=== PATIENT | female | born 1940 | race Caucasian/White ===

== ENCOUNTER 2017-05-30 12:20 | Inpatient (IN) | payer MEDICARE ==
[2017-05-30 12:36] VITALS: BMI 28.8
[2017-05-30] MEDS ORDERED: Dextrose 50% Abboject 50 ML SYRINGE SLOW IVP PRN (13:56)
[2017-05-30] MEDS ORDERED: Dextrose 5% in Water 1,000 ML IV PRN (13:56)
[2017-05-30] MEDS: traMADol HCl 50 MG TAB PO PRN (14:59)
[2017-05-30] MEDS ORDERED: HumaLOG 300 UNITS/3 ML VIAL SC SCH (15:00)
[2017-05-30] MEDS: HumaLOG 300 UNITS/3 ML VIAL SC SCH (16:51)
[2017-05-30] MEDS: tiZANidine HCl 4 MG TAB PO PRN (17:11)
[2017-05-30] MEDS: Ondansetron ODT 4 MG TAB PO PRN (20:24)
[2017-05-30] MEDS: hydrALAZINE 25 MG TAB PO SCH (20:34)
[2017-05-30] MEDS: Gabapentin 300 MG CAP PO SCH (20:34)
[2017-05-30] MEDS: Levemir Flexpen 100 UNITS/ML PEN SC SCH (20:35)
--- NOTE | 2017-05-31 01:13 | HP ---
DATE OF ADMISSION: 05/30/2017 ADMITTING PHYSICIAN: Yeny Mora M.D. PRIMARY CARE PHYSICIAN: Westley Phan M.D. REASON FOR ADMISSION: Skilled rehabilitation at [facility] status post lumbar laminectomy. HISTORY OF PRESENT ILLNESS: Ms. Elliott Snell is a 76-year-old female with a past medical history of hypothyroidism, diabetes type 2, hypertension, neuropathic pain and chronic back pain. The patient has had chronic back pain for the past 7 years, which has progressively worsened and started to effect ADLs with episodes of multiple falls. The patient has had several MIKHAIL injections over the last 2 years with minimal pain relief. The decision was made to go for an elective laminectomy which patient did have on by Dr. Uriostegui. The patient was admitted to [facility] in [place] on the and discharged 05/30/2017 to continue skilled rehabilitation prior to discharge to home. The patient states she lives in a home by herself. She is a and she would like to go back home and be able to take care of herself. During hospitalization in [place], the patient did well and she had started physical therapy prior to discharge to skilled rehabilitation. The patient denies any nausea, vomiting. Denies any abdominal pain, denies any fevers, shortness of breath, or palpitations. She complains of back pain which is expected and some bilateral leg pain. A venogram of extremities was done in [facility] this morning and did not show any DVTs. The patient's pain is controlled with a muscle relaxant and tramadol. She is passing gas. She is tolerating a diet and has no other concerns. NEUROSPINE PHYSICIAN: Dr. Uriostegui. PAST MEDICAL HISTORY: Diabetes type 2, hypertension, hypothyroidism. PAST SURGICAL HISTORY: Cholecystectomy at age 36, hysterectomy at age 26. FAMILY HISTORY: Siblings alive, parents diseased with diabetes. SOCIAL HISTORY: Denies alcohol or illicit drug use. Denies tobacco use. The patient is a and has three grandchildren. MEDICATIONS: Carvedilol 12.5 daily, estradiol 1 mg daily, Lasix 20 daily, Neurontin 300 mg b.i.d., hydralazine 25 mg daily, Levemir 25 mg at bedtime, Humalog 7 mg t.i.d., levothyroxine 50 mcg daily, Paxil 25 mg daily, tizanidine 4 mg q.6 hours p.r.n., tramadol 100 mg t.i.d. p.r.n. pain. REVIEW OF SYSTEMS: General: The patient complains of weakness. The patient denies malaise. Denies any fever. Eyes: Denies eye pain, blurry vision, discharge. HEENT: Denies sinus pain, sore throat, ear pain discharge. Cardiovascular: Denies shortness of breath, chest pain. Respiratory: Denies cough, sputum production. Gastrointestinal: Denies nausea, vomiting, abdominal pain, melena, hematochezia. Musculoskeletal: Complains of back pain and bilateral leg pain. Neurologic: Denies confusion and altered mental status , headache. Psychiatric: Denies depression or hallucinations. PHYSICAL EXAMINATION: VITAL SIGNS: Temperature 98.1, pulse 73, respirations 20, O2 sat 96% on room air, blood pressure 126/67. GENERAL: Alert, awake, oriented x3, , very pleasant female, lying comfortably in bed. HEENT: Normocephalic, atraumatic. Moist oral mucous membranes. Trachea midline. Eyes: Pupils round, equal, reactive to light. Extraocular muscles intact. NECK: Supple, trachea midline. RESPIRATORY: Clear to auscultation bilaterally. CARDIOVASCULAR: S1, S2 present, no murmurs, rhythm and rate regular. ABDOMEN: Positive bowel sounds, soft, nontender, nondistended. EXTREMITIES: No calf edema or erythema. No tenderness. NEUROLOGICAL: Alert, awake, oriented x3. No focal deficits. PSYCHIATRIC: Normal exam. SKIN: Bruising to upper extremities from IV site. BACK: Midline incision was clean. No surrounding erythema, mildly tender with Steri-Strips in place. ASSESSMENT: 1. Gait instability. 2. Status post lumbar laminectomy. 3. Chronic back pain. 4. Diabetes type 2. 5. Hypothyroidism. 6. Hypertension. PLAN: This is a 76-year-old female with history of hypertension, hypothyroidism, and chronic back pain who is status post lumbar laminectomy and requires shelter for inpatient physical therapy and occupational therapy prior to discharge to home. We will admit patient to [facility] for skilled rehabilitation. We will consult physical therapy for strengthening and gait balance and gait training. We will consult occupational therapy to address activities of daily living and assist with devices and we will consult. We will restart the patient's home medications. We will control pain management with tramadol as needed and tizanidine for muscle relaxant. We will monitor the patient for any hemodynamic instabilities. We will place patient on Protonix for DVT prophylaxis and SCDs for DVT prophylaxis. Anticipated length of stay 1 to 2 weeks. MTDD
[2017-05-31] MEDS: traMADol HCl 50 MG TAB PO PRN ×2 (02:12→19:15)
[2017-05-31] MEDS: Levothyroxine Sodium 50 MCG TAB PO SCH (06:10)
[2017-05-31] MEDS: Furosemide 20 MG TAB PO SCH (08:34)
[2017-05-31] MEDS: HumaLOG 300 UNITS/3 ML VIAL SC SCH ×3 (08:35→16:59)
[2017-05-31] MEDS: Carvedilol 6.25 MG TAB PO SCH (08:36)
[2017-05-31] MEDS: Estradiol 1 MG TAB PO SCH (08:37)
[2017-05-31] MEDS: hydrALAZINE 25 MG TAB PO SCH ×2 (08:37→20:34)
[2017-05-31] MEDS: PARoxetine CR 12.5 MG TAB PO SCH (08:37)
[2017-05-31] MEDS: Gabapentin 300 MG CAP PO SCH ×2 (08:37→20:34)
[2017-05-31] MEDS: Multivit, Therapeutic 1 TAB PO SCH (08:37)
[2017-05-31] MEDS ORDERED: PAROXETINE HCL 20 MG PO SCH (09:00)
[2017-05-31] MEDS: Ondansetron ODT 4 MG TAB PO PRN ×2 (09:37→22:42)
[2017-05-31] MEDS: tiZANidine HCl 4 MG TAB PO PRN ×2 (09:37→20:37)
[2017-05-31] MEDS: Levemir Flexpen 100 UNITS/ML PEN SC SCH (20:33)
[2017-06-01] MEDS: traMADol HCl 50 MG TAB PO PRN ×3 (03:42→20:59)
[2017-06-01] MEDS: tiZANidine HCl 4 MG TAB PO PRN ×2 (04:43→21:00)
[2017-06-01] MEDS: Levothyroxine Sodium 50 MCG TAB PO SCH (06:03)
[2017-06-01] MEDS: Furosemide 20 MG TAB PO SCH (08:07)
[2017-06-01] MEDS: Carvedilol 6.25 MG TAB PO SCH (08:08)
[2017-06-01] MEDS: Gabapentin 300 MG CAP PO SCH ×2 (08:08→21:00)
[2017-06-01] MEDS: Estradiol 1 MG TAB PO SCH (08:08)
[2017-06-01] MEDS: PARoxetine CR 12.5 MG TAB PO SCH (08:09)
[2017-06-01] MEDS: hydrALAZINE 25 MG TAB PO SCH ×2 (08:09→21:00)
[2017-06-01] MEDS: Multivit, Therapeutic 1 TAB PO SCH (08:09)
[2017-06-01] MEDS: HumaLOG 300 UNITS/3 ML VIAL SC SCH ×3 (08:13→17:09)
[2017-06-01] MEDS: Levemir Flexpen 100 UNITS/ML PEN SC SCH (21:01)
[2017-06-02] MEDS: traMADol HCl 50 MG TAB PO PRN ×3 (04:11→22:01)
[2017-06-02] MEDS: tiZANidine HCl 4 MG TAB PO PRN ×2 (04:12→22:06)
[2017-06-02] MEDS: Ondansetron ODT 4 MG TAB PO PRN (05:02)
[2017-06-02] MEDS: Levothyroxine Sodium 50 MCG TAB PO SCH (05:02)
[2017-06-02] MEDS: Furosemide 20 MG TAB PO SCH (08:15)
[2017-06-02] MEDS: Carvedilol 6.25 MG TAB PO SCH (08:15)
[2017-06-02] MEDS: Multivit, Therapeutic 1 TAB PO SCH (08:16)
[2017-06-02] MEDS: Gabapentin 300 MG CAP PO SCH ×2 (08:16→20:30)
[2017-06-02] MEDS: HumaLOG 300 UNITS/3 ML VIAL SC SCH ×3 (08:16→17:04)
[2017-06-02] MEDS: Estradiol 1 MG TAB PO SCH (08:16)
[2017-06-02] MEDS: hydrALAZINE 25 MG TAB PO SCH ×2 (08:16→20:30)
[2017-06-02] MEDS: PARoxetine CR 12.5 MG TAB PO SCH (08:16)
[2017-06-02] MEDS: Naproxen 500 MG TAB PO PRN (20:31)
[2017-06-02] MEDS: Levemir Flexpen 100 UNITS/ML PEN SC SCH (20:32)
[2017-06-02] MEDS ORDERED: diphenhydrAMINE 25 MG CAP PO SCH (23:15)
[2017-06-03] MEDS: tiZANidine HCl 4 MG TAB PO PRN ×3 (03:11→22:05)
[2017-06-03] MEDS: Naproxen 500 MG TAB PO PRN (03:11)
[2017-06-03] MEDS: Levothyroxine Sodium 50 MCG TAB PO SCH (05:51)
[2017-06-03] MEDS: traMADol HCl 50 MG TAB PO PRN ×2 (05:52→20:26)
[2017-06-03] MEDS: hydrALAZINE 25 MG TAB PO SCH ×2 (08:32→20:25)
[2017-06-03] MEDS: Carvedilol 6.25 MG TAB PO SCH (08:32)
[2017-06-03] MEDS: Gabapentin 300 MG CAP PO SCH ×2 (08:32→20:26)
[2017-06-03] MEDS: Multivit, Therapeutic 1 TAB PO SCH (08:32)
[2017-06-03] MEDS: Furosemide 20 MG TAB PO SCH (08:32)
[2017-06-03] MEDS: HumaLOG 300 UNITS/3 ML VIAL SC SCH ×3 (08:33→17:10)
[2017-06-03] MEDS: PARoxetine CR 12.5 MG TAB PO SCH (08:33)
[2017-06-03] MEDS: Estradiol 1 MG TAB PO SCH (08:34)
--- NOTE | 2017-06-03 10:46 | RAD ---
LUMBAR SPINE 1 VIEW: Date: 06/03/17 HISTORY: Worsening back pain. FINDINGS: Single AP view of the lumbar spine shows bilateral pedicle screws and vertical rods at the L4-5 leve l without evidence of hardware complication on this single frontal view. No compression fracture is apparent. Other pedicles are intact. IMPRESSION: Postoperative changes of the lower lumbar spine. POS: ARNOLDO
[2017-06-03] MEDS ORDERED: HumaLOG 300 UNITS/3 ML VIAL SC SCH (13:30)
[2017-06-03] MEDS: Levemir Flexpen 100 UNITS/ML PEN SC SCH (20:30)
[2017-06-04] MEDS: Naproxen 500 MG TAB PO PRN ×3 (00:17→19:28)
[2017-06-04] MEDS: traMADol HCl 50 MG TAB PO PRN ×3 (05:34→20:39)
[2017-06-04] MEDS: Levothyroxine Sodium 50 MCG TAB PO SCH (05:34)
[2017-06-04 05:39] LABS: Hemoglobin A1c 8.3 % (4.0-6.0)
[2017-06-04] MEDS: HumaLOG 300 UNITS/3 ML VIAL SC SCH ×3 (08:10→17:33)
[2017-06-04] MEDS: Carvedilol 6.25 MG TAB PO SCH (08:50)
[2017-06-04] MEDS: hydrALAZINE 25 MG TAB PO SCH ×2 (08:54→20:38)
[2017-06-04] MEDS: Gabapentin 300 MG CAP PO SCH ×2 (08:55→20:38)
[2017-06-04] MEDS: Multivit, Therapeutic 1 TAB PO SCH (08:55)
[2017-06-04] MEDS: Furosemide 20 MG TAB PO SCH (08:56)
[2017-06-04] MEDS: Estradiol 1 MG TAB PO SCH (08:57)
[2017-06-04] MEDS: PARoxetine CR 12.5 MG TAB PO SCH (08:58)
[2017-06-04] MEDS: tiZANidine HCl 4 MG TAB PO PRN (09:19)
[2017-06-04] MEDS: Ondansetron ODT 4 MG TAB PO PRN (19:28)
[2017-06-04] MEDS: Levemir Flexpen 100 UNITS/ML PEN SC SCH (20:43)
[2017-06-04] MEDS ORDERED: traMADol HCl 50 MG TAB PO SCH (23:00)
[2017-06-05] MEDS: tiZANidine HCl 4 MG TAB PO PRN (02:07)
[2017-06-05] MEDS: Naproxen 500 MG TAB PO PRN (02:07)
[2017-06-05] MEDS: Levothyroxine Sodium 50 MCG TAB PO SCH (05:12)
[2017-06-05] MEDS: Estradiol 1 MG TAB PO SCH (08:07)
[2017-06-05] MEDS: traMADol HCl 50 MG TAB PO PRN ×2 (08:07→22:01)
[2017-06-05] MEDS: Multivit, Therapeutic 1 TAB PO SCH (08:08)
[2017-06-05] MEDS: Furosemide 20 MG TAB PO SCH (08:08)
[2017-06-05] MEDS: HumaLOG 300 UNITS/3 ML VIAL SC SCH ×3 (08:08→17:11)
[2017-06-05] MEDS: PARoxetine CR 12.5 MG TAB PO SCH (08:08)
[2017-06-05] MEDS: Gabapentin 300 MG CAP PO SCH ×2 (08:08→20:40)
[2017-06-05] MEDS: hydrALAZINE 25 MG TAB PO SCH ×2 (08:08→20:40)
[2017-06-05] MEDS: Carvedilol 6.25 MG TAB PO SCH (08:08)
[2017-06-05] MEDS: Ondansetron ODT 4 MG TAB PO PRN ×2 (15:34→20:49)
[2017-06-05] MEDS: Levemir Flexpen 100 UNITS/ML PEN SC SCH (20:40)
[2017-06-06] MEDS: Naproxen 500 MG TAB PO PRN (00:47)
[2017-06-06] MEDS: tiZANidine HCl 4 MG TAB PO PRN ×2 (02:53→09:47)
[2017-06-06] MEDS: traMADol HCl 50 MG TAB PO PRN ×3 (05:51→20:30)
[2017-06-06] MEDS: Levothyroxine Sodium 50 MCG TAB PO SCH (05:51)
[2017-06-06] MEDS: Furosemide 20 MG TAB PO SCH (07:57)
[2017-06-06] MEDS: HumaLOG 300 UNITS/3 ML VIAL SC SCH ×3 (07:59→17:11)
[2017-06-06] MEDS: PARoxetine CR 12.5 MG TAB PO SCH (09:43)
[2017-06-06] MEDS: Estradiol 1 MG TAB PO SCH (09:44)
[2017-06-06] MEDS: hydrALAZINE 25 MG TAB PO SCH ×2 (09:44→20:29)
[2017-06-06] MEDS: Gabapentin 300 MG CAP PO SCH ×2 (09:44→20:29)
[2017-06-06] MEDS: Carvedilol 6.25 MG TAB PO SCH (09:44)
[2017-06-06] MEDS: Multivit, Therapeutic 1 TAB PO SCH (09:44)
[2017-06-06] MEDS: Levemir Flexpen 100 UNITS/ML PEN SC SCH (20:31)
[2017-06-07] MEDS: tiZANidine HCl 4 MG TAB PO PRN ×3 (01:08→21:11)
[2017-06-07] MEDS: Levothyroxine Sodium 50 MCG TAB PO SCH (06:14)
[2017-06-07] MEDS: traMADol HCl 50 MG TAB PO PRN ×2 (06:21→18:25)
[2017-06-07] MEDS: hydrALAZINE 25 MG TAB PO SCH ×2 (08:18→21:10)
[2017-06-07] MEDS: Gabapentin 300 MG CAP PO SCH ×2 (08:18→21:10)
[2017-06-07] MEDS: PARoxetine CR 12.5 MG TAB PO SCH (08:18)
[2017-06-07] MEDS: Carvedilol 6.25 MG TAB PO SCH (08:18)
[2017-06-07] MEDS: Furosemide 20 MG TAB PO SCH (08:18)
[2017-06-07] MEDS: Multivit, Therapeutic 1 TAB PO SCH (08:18)
[2017-06-07] MEDS: HumaLOG 300 UNITS/3 ML VIAL SC SCH ×3 (08:19→16:52)
[2017-06-07] MEDS: Estradiol 1 MG TAB PO SCH (08:19)
[2017-06-07] MEDS: Naproxen 500 MG TAB PO PRN ×2 (08:26→22:23)
[2017-06-07] MEDS: Levemir Flexpen 100 UNITS/ML PEN SC SCH (21:11)
[2017-06-08] MEDS: traMADol HCl 50 MG TAB PO PRN (00:39)
[2017-06-08] MEDS: tiZANidine HCl 4 MG TAB PO PRN (05:39)
[2017-06-08] MEDS: Levothyroxine Sodium 50 MCG TAB PO SCH (05:39)
[2017-06-08 07:41] VITALS: TEMP 97.6
[2017-06-08] MEDS: Furosemide 20 MG TAB PO SCH (08:01)
[2017-06-08] MEDS: HumaLOG 300 UNITS/3 ML VIAL SC SCH (08:01)
[2017-06-08] MEDS: Gabapentin 300 MG CAP PO SCH (09:04)
[2017-06-08] MEDS: Estradiol 1 MG TAB PO SCH (09:04)
[2017-06-08] MEDS: hydrALAZINE 25 MG TAB PO SCH (09:04)
[2017-06-08] MEDS: Multivit, Therapeutic 1 TAB PO SCH (09:04)
[2017-06-08] MEDS: Carvedilol 6.25 MG TAB PO SCH (09:04)
[2017-06-08 09:05] VITALS: BP 128/69
[2017-06-08] MEDS: PARoxetine CR 12.5 MG TAB PO SCH (09:05)
--- NOTE | 2017-06-09 00:31 | DIS ---
DATE OF ADMISSION: 05/30/2017 DATE OF DISCHARGE: 06/08/2017 PRIMARY CARE PHYSICIAN: Westley Phan MD DISCHARGING PHYSICIAN: Yeny Mora M.D. FINAL DIAGNOSES: 1. Gait instability. 2. Status post lumbar laminectomy L4-L5. 3. Hypertension. 3. Diabetes type 2. 4. Hypothyroidism. DISCHARGE MEDICATIONS: Carvedilol 12.5 daily, Estrace 1 mg daily, Lasix 20 daily, gabapentin 300 b.i.d., hydralazine 25 daily, Levemir 30 units at bedtime , Humalog 7 units t.i.d., Synthroid 50 daily, naproxen 500 mg t.i.d., Paxil 25 daily, tizanidine 4 mg q. 6 hours p.r.n. pain and muscle spasm, tramadol 100 q. 6 hours p.r.n. [id number] pain. DISCHARGE INSTRUCTIONS: Follow up with PCP in 2 weeks. Follow up with neurosurgeon, Dr. Uriostegui, in 1 week. [facility] to start physical and occupational therapy. Diabetic diet. Fall precautions. Ambulate with a walker as needed. BRIEF HOSPITAL COURSE: Ms. Snell is a 76-year-old female who has had a history of lower back pain for the past 7 years that has progressively worsened and had significant neurologic claudication. The patient failed conservative therapy. As injections to the lower back and physical therapy did not give any relief, she opted for neurosurgical intervention. The patient had an elective laminectomy done on 05/22/[address] Uriostegui. The patient's procedure was not complicated. The patient was transferred to [facility] for physical therapy prior to discharge to a home. The patient progressively improved with therapy. The pain was controlled with appropriate pain medications and muscle relaxants. During hospitalization, the patient's blood sugar was noted to be very elevated and her insulin was adjusted and this progressively improved. The patient's hospitalization was stable, progressively improved, and she did not have any falls. The pain was controlled by tramadol, gabapentin, and Zanaflex. The patient was subsequently discharged back to a home in a stable condition to continue physical and occupational therapy with [facility]. CODE STATUS: The patient is a FULL CODE. DISCHARGE VITAL SIGNS: Temperature 97.6, pulse 67, respirations 16, O2 sat 98% on room air, blood pressure 117/63. MTDD
== END 2017-06-08 10:15 | disposition home health service (06) | DRG 93 ==
LOC: MADMS 12:20
PROVIDERS: ADMIT Family Medicine; ATTEND Family Medicine
DX: R26.9 Unspecified abnormalities of gait and mobility (principal); G62.9 Polyneuropathy, unspecified; E11.9 Type 2 diabetes mellitus without complications; I10 Essential (primary) hypertension; Z98.890 Other specified postprocedural states; E03.9 Hypothyroidism, unspecified; Z79.4 Long term (current) use of insulin; G89.29 Other chronic pain; M54.9 Dorsalgia, unspecified
CPT/HCPCS: 36415; 36416; 72020; 83036; G8978-GP-CK; G8979-GP-CI; G8987-GO-CL; G8988-GO-CI; J1815; Q0162